=== PATIENT | female | born 1965 | race Caucasian/White ===

== ENCOUNTER 2020-03-30 10:50 | Inpatient (IN) | payer MEDICAID, SELFPAY ==
[2020-03-30] VITALS (12 sets, daily range): BP systolic 92–124; BP diastolic 54–79; PULSE 105–135; RESP 15–21; TEMP 37.1–38.7; O2SAT 92–96; BMI 18.0; BMI 18.2
--- NOTE | 2020-03-30 10:54 | HMH.EDGENADL ---
ED Disposition Clinical Impression: Hypokalemia Community acquired pneumonia Qualifiers: Laterality: right Lung location: middle lobe of lung Qualified Code(s): J18.9 - Pneumonia, unspecified organism Sepsis Qualifiers: Sepsis type: sepsis due to unspecified organism Sepsis acute organ dysfunction status: without acute organ dysfunction Qualified Code(s): A41.9 - Sepsis, unspecified organism Disposition: Admitted as Observation Condition on Discharge: Fair - Critical Care Critical Care Time: No Attestation: On , the high probability of a clinically significant, sudden or life threatening deterioration of the following system(s) required my full and direct attention, intervention and personal management. The time I documented below is in addition to time spent performing reported procedures but includes the following listed in this critical care notation. Medical Decision Making - Medical Records Medical records reviewed: Yes: I reviewed the patient's medical records. - Jim Inquiry Pt receiving controlled substance: No Vital Signs: 03/30/20 10:50 03/30/20 11:20 Temperature 101.7 F H Temperature Source Oral Pulse Rate [Left Radial] 135 H 125 H Respiratory Rate 21 Blood Pressure [Right Arm] 123/78 Blood Pressure Mean [Right Arm] 93 Blood Pressure Source [Right Arm] Automatic Cuff Blood Pressure Position [Right Arm] Sitting 02 Sat by Pulse Oximetry 94 L Oxygen Delivery Method Room Air - Lab Data Lab results reviewed: Yes: I reviewed the patient's lab results. Lab Results 03/30/20 11:10: WBC 17.3 H, RBC 3.96 L, Hgb 11.7 L, Hct 36.1 L, MCV 91.0, MCH 29.6, MCHC 32.5, RDW 12.5, Plt Count 387, MPV 6.8 L, Neut % (Auto) 85.1 H, Lymph % (Auto) 5.6 L, [place] % (Auto) 8.0, Eos % (Auto) 1.1, Baso % (Auto) 0.1, Neut # (Auto) 14.7 H, Lymph # (Auto) 1.0, [place] # (Auto) 1.4 H, Eos # (Auto) 0.2, Baso # (Auto) 0.0, Total Counted 100, Neutrophils % (Manual) 86 H, Lymphocytes % (Manual) 5 L, Monocytes % (Manual) 8, Eosinophils % (Manual) 1, Platelet Estimate Normal, RBC Morphology Normal 03/30/20 11:10: Sodium 130 L, Potassium 3.1 L, Chloride 91 L, Carbon Dioxide 30, Anion Gap 12.1, BUN 6 L, Creatinine 0.50 L, Estimated Creat Clear 98, Estimated GFR 129, Est GFR ( Amer) 156, Glucose 132 H, Calcium 8.8, Total Bilirubin 0.7, AST 23, ALT 25, Alkaline Phosphatase 152 H, Total Protein 7.9, Albumin 4.0, Globulin 3.9 H, Albumin/Globulin Ratio 1.0 L 03/30/20 11:10: Lactate 0.8 03/30/20 11:10: SARS-CoV-2 IgG Ab (Rapid) Negative, SARS-CoV-2 IgM Ab (Rapid) Negative 03/30/20 11:30: Influenza Type A Ag Negative, Influenza Type B Ag Negative Result diagrams: 03/30/20 11:10 03/30/20 11:10 Orders (Tests/Meds): ED MEDICATIONS Generic Name Dose Route Start Last Admin Trade Name Freq PRN Reason Stop Dose Admin Azithromycin 500 mg/ Sodium 250 mls @ 250 mls/hr 03/30/20 11:45 03/30/20 11:41 Chloride IV 04/13/20 11:44 250 mls/hr Q24H OWEN Administration Protocol Sodium Chloride 3 ml 03/30/20 11:06 Sodium Chloride 3% 15ml Neb IH 04/29/20 11:05 ONCE PRN INDUCE SPUTUM COLLECTION Discontinued Medications Generic Name Dose Route Start Last Admin Trade Name Freq PRN Reason Stop Dose Admin Acetaminophen 1,000 mg 03/30/20 11:05 03/30/20 11:26 Acetaminophen 500mg Tab PO 03/30/20 11:06 1,000 mg ONCE ONE Administration Ceftriaxone Sodium 1 gm/ 50 mls @ 100 mls/hr 03/30/20 11:39 03/30/20 11:41 Sodium Chloride IV 03/30/20 12:08 100 mls/hr ONCE ONE Administration Protocol Potassium Chloride 40 meq 03/30/20 11:41 03/30/20 11:42 Potassium Chloride 20meq Tab PO 03/30/20 11:42 40 meq ONCE ONE Administration Sodium Chloride 1,000 ml 03/30/20 11:05 03/30/20 11:38 Sodium Chloride 0.9% 1000ml Bag IV 03/30/20 11:06 1,000 ml BOLUS ONE Administration ORDERS Category Date Time Status Covid-19 Nasal PCR ([facility]) Routine Lab 03/30/20 11:30 Received Blo
--- NOTE | 2020-03-30 10:55 | ECG_ITS ---
APPROVED REPORT Exam: Resting ECG HR:142 bpm ECG Measurements Heart Rate 142 AXES CO 124 P 76 QRSd 72 QRS 132 QT 354 T 79 QTc 544 Conclusion Sinus tachycardia Left atrial abnormality Indeterminate axis Borderline ECG Electronically signed by : Juan Manuel Bailey, 04/04/2020 09:53:29
--- NOTE | 2020-03-30 11:06 | XR_ITS ---
PROCEDURE: XR CHEST PORTABLE CLINICAL HISTORY: cough, fever COMPARISON: No exams were available for comparison FINDINGS: The cardiomediastinal silhouette and pulmonary vascularity are within normal limits. Consolidation is present in the right lower lobe consistent with pneumonia. There is a small right effusion. There is faint infiltrate suspected in the right suprahilar region. There is a 13 mm nodular opacity projecting over the left lower lobe possibly due to nipple shadow overlying the 6th rib anteriorly. No acute bony findings. No acute bony abnormalities. IMPRESSION: Right lower lobe pneumonia with effusion. Nipple shadow versus pulmonary nodule left lower lung zone. Dictated by: Kal Terry MD 03/30/2020 12:16 Kal Terry MD in [place] 03/30/2020 12:16
[2020-03-30 11:30] LABS: Basophils % 0.1 % (0.1-2.0); Eosinophils # 0.2 K/mm3 (0.0-0.4); Eosinophils % 1.1 % (0.1-12.0); Hematocrit 36.1 % (37.0-47.0); Hemoglobin 11.7 g/dL (12.2-16.2); Lymphocytes % 5.6 % (10-50); Mean Corpuscular HGB Conc 32.5 g/dL (31.8-35.4); Mean Corpuscular Hemoglobin 29.6 pg (27.0-31.2); Mean Platelet Volume 6.8 fl (7.4-10.4); Monocytes # 1.4 K/mm3 (0.1-1.0); Neutrophils # 14.7 K/mm3 (1.8-7.8); Neutrophils % 85.1 % (37.0-80.0); Platelet Count 387 K/mm3 (142-424); Red Blood Count 3.96 M/mm3 (4.20-5.40); Red Cell Distribution Width 12.5 % (11.5-17.5); White Blood Count 17.3 K/mm3 (4.8-10.8)
[2020-03-30 11:32] LABS: Chloride 91 mmol/L (98-107); MANUAL DIFFERENTIAL MANUAL DIFFERENTIAL (MANUAL DIFF); Potassium 3.1 mmoL/L (3.5-5.1); Sodium 130 mmol/L (136-145)
[2020-03-30 11:35] LABS: Alanine Aminotransferase 25 U/L (12-78); Alkaline Phosphatase 152 U/L (38-126); Anion Gap 12.1 mEq/L (5-15); Aspartate Amino Transferase 23 U/L (14-36); Bilirubin,Total 0.7 mg/dl (0.2-1.3); Blood Urea Nitrogen 6 mg/dl (7-17); Carbon Dioxide 30 mmol/L (22.0-30.0); Creatinine Clearance Estimated 98 mL/min (50-200); Estimated Glomerular Filt Rate 129 ml/min (>60); GFR (African American) 156 ML/MIN (>60); Globulin 3.9 g/dL (1.3-3.2); Total Protein,Serum 7.9 g/dl (6.3-8.2)
[2020-03-30 11:36] LABS: Calcium 8.8 mg/dl (8.4-10.2); Glucose 132 mg/dl (74-100); Lactic Acid 0.8 mmol/L (0.7-2.1)
[2020-03-30 11:44] LABS: Eosinophils % 1 % (0-3); Lymphocytes % 5 % (10-50); Monocytes % 8 % (2-9); Neutrophils % 86 % (42-76); Platelet Estimate Normal; RBC Morphology Normal; Total Cells Counted 100
[2020-03-30 11:56] LABS: Coronavirus 19 IgG Antibody Negative (Negative)
[2020-03-30 11:57] LABS: Coronavirus 19 IgM Antibody Negative (Negative)
--- NOTE | 2020-03-30 12:01 | PC.NURSE ---
DANIELE CARLTON speaking with Dr. Sheldon contacted [facility] office to speak with Dr. Ngo as still operator helper states he is on for service call. Office staff states Dr. Ngo is out to lunch, placed me on hold to see how to proceed, stated they would place Dr. Sheldon on the phone.
--- NOTE | 2020-03-30 12:04 | PC.NURSE ---
attempted to call care management for admission, no answer, concrete finishing machine operator going to try to page them
--- NOTE | 2020-03-30 12:12 | PC.NURSE ---
CM out to lunch, HS aware if admission. Will call back with a bed
--- NOTE | 2020-03-30 12:41 | HMH.PHAVTE ---
[facility] Pharmacy VTE Monitoring - Patient Demographics Admission date: 03/30/20 Report Date: 03/30/20 Time: 12:41 Allergies/Adverse Reactions: Patient Allergies No Known Allergies Allergy (Verified 04/13/19 16:45) Height: 1.63 m Weight: 47.627 kg Patient Problems: Current Active Problems Community acquired pneumonia (Acute) Sepsis (Acute) Hypokalemia (Acute) - VTE Risk Labs: VTE Related Lab Results Hgb 11.7 g/dL (12.2-16.2) L 03/30/20 11:10 Hct 36.1 % (37.0-47.0) L 03/30/20 11:10 Plt Count 387 K/mm3 (142-424) 03/30/20 11:10 BUN 6 mg/dl (7-17) L 03/30/20 11:10 Creatinine 0.50 mg/dl (0.52-1.04) L 03/30/20 11:10 Estimated Creat Clear 98 mL/min (50-200) 03/30/20 11:10 Clinical Trial Participant: No - Prophylaxis VTE Prophylaxis Ordered?: Yes Types of VTE Prophylaxis: TEDS Knee High
--- NOTE | 2020-03-30 12:44 | HMH.PHAINT ---
HOME MEDICATION RECONCILIATION COMPLETED USING LIST FROM [facility].
--- NOTE | 2020-03-30 13:24 | HMH.HP ---
*Admission Date: 03/30/20 <Mona Diehl 03/30/20 13:30> *Chief complaint: body aches; fever <Mona Diehl 03/30/20 18:06> *History of present illness: HPI narrative from the ER: Brought in by ambulance complaining of cough, generalized weakness, body aches. Symptoms began on Sunday. She has felt feverish but thinks she is only had a low-grade fever. No known exposures to any illnesses including COVID-19. Denies vomiting or diarrhea. Denies loss of taste or smell. Denies rhinorrhea or sore throat. Denies shortness of breath, but says her chest feels congested. Reported pulse oximetry on room air prior to transport was 98%. Patient reported taking a couple of Sudafed, noted to be tachycardic during transport. She has a history of breast cancer metastatic to lung. Her cancer specialist is Dr. Stovall with [facility] in [place]. She is on tamoxifen. She does not have a primary care provider. She states she is a non-smoker. No recent hospitalizations in the past 3 months. With work-up in the emergency room patient was found to have a right lower lobe pneumonia with effusion. White blood cell count was 17,300 with a hemoglobin of 11.7 and hematocrit of 36.1. Differential showed 85.1% neutrophils. She also was noted to have a low potassium at 3.1. Renal function was not elevated. COVID IgG and IgM were negative. Influenza A and B were also negative. She was given IV fluid bolus and started on Zithromax and Rocephin as well as p.o. potassium 40 mEq. She was then admitted for further evaluation and treatment <Mona Diehl 03/30/20 18:06> [facility] History Medical History: Reports:: Cancer (breast/lung) Denies:: Seizures <Mona Diehl 03/30/20 18:52> *Have you ever received a pneumonia vaccine?: No <Mona Diehl 03/30/20 13:30> *Have you received a flu vaccine this season?: No <Mona Diehl 03/30/20 13:30> Comment:: States she tends to be anorexic due to running after her autistic son. She takes metoprolol for SVT <Mona Diehl 03/30/20 18:52> Laterality Cases: Left: Breast Biopsy, Right: Lumpectomy <ShanitaMona 03/30/20 18:52> - *Social History Last grade of school completed: Some college <Mona Diehl 03/30/20 18:06> Alcohol Intake: never <Mona Diehl 03/30/20 13:30> Substance Use Type: denies use <Mona Diehl 03/30/20 18:06> *Occupational Status:: unemployed, disabled <Mona Diehl 03/30/20 18:06> Housing: house <Mona Diehl 03/30/20 18:06> Household Members: family <Mona Diehl 03/30/20 18:06> *Travel in the last 8 weeks: None <Mona Diehl 03/30/20 13:30> Family Hx:: Cancer, no Coronary Artery Disease, no Diabetes <Mona Diehl 03/30/20 18:06> Review of Systems - Constitutional Reports chills, Reports headache(s), Reports weakness <Mona Diehl 03/30/20 18:06> - Eyes Denies change in vision <Mona Diehl 03/30/20 18:06> - ENT Denies ear pain, Denies nasal congestion, Denies post nasal drip, Denies sore throat <Mona Diehl 03/30/20 18:06> - *Cardiovascular Reports chest pain (thinks it is her lungs) <Mona Diehl 03/30/20 18:06> - *Respiratory Reports change in phlegm color, Reports chest congestion, Reports cough, Reports shortness of breath, Denies coughing up blood <Mona Diehl 03/30/20 18:06> - *Gastrointestinal Denies abdominal pain, Denies heartburn, Denies nausea, Denies vomiting <Mona Diehl 03/30/20 18:06> - *Genitourinary Denies difficulty urinating, Denies painful urination <Mona Diehl 03/30/20 18:06> - *Musculoskeletal Denies joint pain <Mona Diehl 03/30/20 18:06> - *Neurologic Reports headache(s), Denies seizure-like activity <Mona Diehl - 03/30/20 18:06> Meds Home Medications Medication Instructions Recorded Confirmed Type Albuterol Sulfate [Albuterol 2 puff IH Q6HP PRN 04/13/19 03/30/20 History Sulfate Hfa] Metoprolol Succinate 25 mg PO DAILY 04/13
--- NOTE | 2020-03-30 13:25 | PC.NURSE ---
Attempted to call report, RN unable to take report at this time. Will call back
--- NOTE | 2020-03-30 13:37 | PC.NURSE ---
Report given to Zo on 2nd floor
--- NOTE | 2020-03-30 14:24 | PC.NURSE ---
Late entry: PT arrived to the floor at 1407
--- NOTE | 2020-03-30 17:47 | PC.NURSE ---
Addendum entered by Lilia Larson RN 03/30/20 20:36: 1830 - Dr. Sheldon to floor to see pt at this time. Made aware of pt's tachycardia as well. to place orders. Original Note: Stacey iDehl at bedside when VS obtained, aware of pt's tachycardia.
--- NOTE | 2020-03-30 18:30 | PC.NURSE ---
Report received from Jo BarajasRN @ 0096. Pt has rested comfortably w/o complaints since assuming care. Remains on room air. Is afebrile. Ambulates independently w/o safety concerns. Voiding w/o difficulty. Has poor appetite. Call nelson w/in reach. No needs voiced.
--- NOTE | 2020-03-30 18:50 | PC.NURSE ---
Held pt's breathing treatment due to high heart rate. Pt stated she did not need one right now
[2020-03-31] VITALS (12 sets, daily range): BP systolic 100–116; BP diastolic 56–71; PULSE 90–125; RESP 14–20; TEMP 36.4–37; O2SAT 95–98; BMI 18.0
--- NOTE | 2020-03-31 06:56 | PC.NURSE ---
shift summary, no acute changes since prior assessment, pt has rested well t/o shift, pt has had no complaints of SOA, pt O2 sats have remained 96-98% on room air,
[2020-03-31 07:02] LABS: Basophils % 0.2 % (0.1-2.0); Eosinophils # 0.1 K/mm3 (0.0-0.4); Eosinophils % 0.7 % (0.1-12.0); Hematocrit 30.1 % (37.0-47.0); Lymphocytes # 1.1 K/mm3 (0.7-4.5); Lymphocytes % 8.1 % (10-50); Mean Corpuscular HGB Conc 31.1 g/dL (31.8-35.4); Mean Corpuscular Hemoglobin 29.6 pg (27.0-31.2); Mean Corpuscular Volume 95.3 fl (81-99); Mean Platelet Volume 7.2 fl (7.4-10.4); Monocytes # 1.3 K/mm3 (0.1-1.0); Monocytes % 9.8 % (1.7-9.3); Neutrophils # 11.2 K/mm3 (1.8-7.8); Neutrophils % 81.3 % (37.0-80.0); Platelet Count 356 K/mm3 (142-424); Red Blood Count 3.16 M/mm3 (4.20-5.40); Red Cell Distribution Width 12.6 % (11.5-17.5); White Blood Count 13.8 K/mm3 (4.8-10.8)
[2020-03-31 07:09] LABS: Hemoglobin 9.4 g/dL (12.2-16.2)
[2020-03-31 07:23] LABS: Chloride 102 mmol/L (98-107); Potassium 3.5 mmoL/L (3.5-5.1); Sodium 138 mmol/L (136-145)
[2020-03-31 07:26] LABS: Anion Gap 7.5 mEq/L (5-15); Blood Urea Nitrogen 6 mg/dl (7-17); Calcium 8.3 mg/dl (8.4-10.2); Carbon Dioxide 32 mmol/L (22.0-30.0); Creatinine Clearance Estimated 98 mL/min (50-200); Estimated Glomerular Filt Rate 129 ml/min (>60); GFR (African American) 156 ML/MIN (>60); Glucose 108 mg/dl (74-100)
--- NOTE | 2020-03-31 10:27 | HMH.ACPN2 ---
Internal Medicine - PN: Subj *Date: 03/31/20 *Time: 10:27 Interval history: Rested fairly well and feels a little better this AM. Cough is starting to become productive. Some right pleuritic pain. Has not produced sputum sample yet. Exam Vital signs and Labs for Last 24 Hours: Temp Pulse Resp BP Pulse Ox 97.6 F 125 H 18 104/69 L 95 03/31/20 08:00 03/31/20 08:00 03/31/20 08:00 03/31/20 08:00 03/31/20 08:00 Laboratory Results - last 24 hr 03/30/20 11:10: WBC 17.3 H, RBC 3.96 L, Hgb 11.7 L, Hct 36.1 L, MCV 91.0, MCH 29.6, MCHC 32.5, RDW 12.5, Plt Count 387, MPV 6.8 L, Neut % (Auto) 85.1 H, Lymph % (Auto) 5.6 L, [place] % (Auto) 8.0, Eos % (Auto) 1.1, Baso % (Auto) 0.1, Neut # (Auto) 14.7 H, Lymph # (Auto) 1.0, [place] # (Auto) 1.4 H, Eos # (Auto) 0.2, Baso # (Auto) 0.0, Total Counted 100, Neutrophils % (Manual) 86 H, Lymphocytes % (Manual) 5 L, Monocytes % (Manual) 8, Eosinophils % (Manual) 1, Platelet Estimate Normal, RBC Morphology Normal 03/30/20 11:10: Sodium 130 L, Potassium 3.1 L, Chloride 91 L, Carbon Dioxide 30, Anion Gap 12.1, BUN 6 L, Creatinine 0.50 L, Estimated Creat Clear 98, Estimated GFR 129, Est GFR ( Amer) 156, Glucose 132 H, Calcium 8.8, Total Bilirubin 0.7, AST 23, ALT 25, Alkaline Phosphatase 152 H, Total Protein 7.9, Albumin 4.0, Globulin 3.9 H, Albumin/Globulin Ratio 1.0 L 03/30/20 11:10: Lactate 0.8 03/30/20 11:10: SARS-CoV-2 IgG Ab (Rapid) Negative, SARS-CoV-2 IgM Ab (Rapid) Negative 03/30/20 11:30: Influenza Type A Ag Negative, Influenza Type B Ag Negative 03/31/20 05:36: Sodium 138, Potassium 3.5, Chloride 102, Carbon Dioxide 32 H, Anion Gap 7.5, BUN 6 L, Creatinine 0.50 L, Estimated Creat Clear 98, Estimated GFR 129, Est GFR ( Amer) 156, Glucose 108 H, Calcium 8.3 L 03/31/20 05:36: WBC 13.8 H, RBC 3.16 L, Hgb 9.4 L D, Hct 30.1 L, MCV 95.3, MCH 29.6, MCHC 31.1 L, RDW 12.6, Plt Count 356, MPV 7.2 L, Neut % (Auto) 81.3 H, Lymph % (Auto) 8.1 L, [place] % (Auto) 9.8 H, Eos % (Auto) 0.7, Baso % (Auto) 0.2, Neut # (Auto) 11.2 H, Lymph # (Auto) 1.1, [place] # (Auto) 1.3 H, Eos # (Auto) 0.1, Baso # (Auto) 0.0 I & O for Last 24 hours: Intake & Output 03/28/20 03/29/20 03/30/20 03/31/20 11:59 11:59 11:59 11:59 Intake Total 2624 / 2624 Balance 2624 / 2624 Weight 105 lb 105 lb 7.986 oz Microbiology Reports for the Last 24 Hours: Microbiology 03/30/20 13:15 Sputum - Expectorated Sputum Sputum Culture - Preliminary 03/30/20 11:30 Nasopharyngeal Coronavirus COVID-19 PCR - Final - *Routine Respiratory Exam Comments: Diminished BS with coarse rales in right base. - *Routine Cardiovascular Exam Present: RRR - *Routine Extremities Exam Absent: edema Assessment and Plan (1) Community acquired pneumonia Status: Acute Qualifiers: Laterality: right Lung location: middle lobe of lung Qualified Code(s): J18.9 - Pneumonia, unspecified organism Category: Medical Code(s): J18.9 - Pneumonia, unspecified organism (2) Hypokalemia Status: Acute Category: Medical Code(s): E87.6 - Hypokalemia (3) SVT (supraventricular tachycardia) Status: Acute Category: Medical Code(s): I47.1 - Supraventricular tachycardia (4) History of breast cancer in adulthood Status: Chronic Category: Medical Code(s): Z85.3 - Personal history of malignant neoplasm of breast (5) BMI less than 19,adult Status: Chronic Category: Medical Code(s): Z68.1 - Body mass index [BMI] 19.9 or less, adult - Assessment and plan all Dx Assessment and Plan for all problems:: Continue current treatment. Encourage OOB activity
--- NOTE | 2020-03-31 19:19 | PC.NURSE ---
report given to amanda
--- NOTE | 2020-03-31 19:33 | PC.NURSE ---
PT AO*4 BUT HAS HAD LOW ENERGY FOR MOST OF DAY, SHE HAS TOLERATED RA WELL WITH NO COMPLAINTS, HAS SLEPT FOR MOST OF THE DAY, HER ONLY COMPLAINT WAS FOR A HEADACHE MEDICATED WITH PRN TYLENOL, EFFECTIVENESS NOTED, HAS AMBULATED TO WITH STANDBY ASSIST, N ONEEDS AT THIS TIME VSS. REPORT GIVEN TO Emmy HILL RN
[2020-04-01] VITALS (10 sets, daily range): BP systolic 108–122; BP diastolic 66–71; PULSE 99–130; RESP 14–20; TEMP 36.6–37.8; O2SAT 95–100; BMI 19.3
--- NOTE | 2020-04-01 04:17 | PC.NURSE ---
Pt is A&Ox4. Lung sounds diminished t/o. Pt has had a dry, nonproductive cough this shift. Pt states her cough got worse after breathing treatment Pt requested a cough suppressant. MD Ngo called. New orders received. SEE PROVIDER NOTIFICATION. Active bowel sounds in all 4 quads. Pt requires standby assistance to the restroom. PIV remains patent and continues to infuse NS @ 100 mL/hr. No other complaints at this time. Call light remains in reach. Will continue to monitor.
[2020-04-01 06:30] LABS: Basophils % 0.2 % (0.1-2.0); Eosinophils # 0.1 K/mm3 (0.0-0.4); Hematocrit 29.1 % (37.0-47.0); Hemoglobin 9.1 g/dL (12.2-16.2); Lymphocytes % 7.8 % (10-50); Mean Corpuscular HGB Conc 31.4 g/dL (31.8-35.4); Mean Corpuscular Hemoglobin 29.6 pg (27.0-31.2); Mean Corpuscular Volume 94.1 fl (81-99); Mean Platelet Volume 7.1 fl (7.4-10.4); Monocytes # 0.9 K/mm3 (0.1-1.0); Monocytes % 7.4 % (1.7-9.3); Neutrophils # 10.3 K/mm3 (1.8-7.8); Neutrophils % 83.6 % (37.0-80.0); Platelet Count 411 K/mm3 (142-424); Red Blood Count 3.09 M/mm3 (4.20-5.40); Red Cell Distribution Width 12.7 % (11.5-17.5); White Blood Count 12.4 K/mm3 (4.8-10.8)
--- NOTE | 2020-04-01 08:33 | XR_ITS ---
PROCEDURE: XR CHEST PORTABLE CLINICAL HISTORY: f/u pneumonia COMPARISON: CR XR CHEST PORTABLE from 03/30/2020 FINDINGS: The cardiomediastinal silhouette and pulmonary vascularity are within normal limits. There is consolidation in the right lower lobe consistent with pneumonia with effusion. The pleural thickening is slightly more prominent laterally. Small left effusion also suspected. 12 mm opacity once again noted overlying the left lower lung zone and may be due to nipple shadow. No acute bony abnormalities. IMPRESSION: No change right lower lobe pneumonia with right-sided pleural effusion which may be slightly larger. Trace left effusion also noted. Dictated by: Kal Terry MD 04/01/2020 13:18 Kal Terry MD in [place] 04/01/2020 13:18
--- NOTE | 2020-04-01 08:56 | HMH.ACPN2 ---
<Komal Macdonald - Last Filed: 04/01/20 08:56> Internal Medicine - PN: Subj *Date: 04/01/20 *Time: 07:50 Interval history: Pt reports being weak and not feeling well this morning. She states she is hungry but has not yet attempted to eat breakfast. She has a productive cough which kept her from resting well overnight. Exam Vital signs and Labs for Last 24 Hours: Temp Pulse Resp BP Pulse Ox 98.4 F 127 H 18 118/69 97 04/01/20 04:00 04/01/20 06:25 04/01/20 04:00 04/01/20 04:00 04/01/20 06:25 Laboratory Results - last 24 hr 04/01/20 06:15: WBC 12.4 H, RBC 3.09 L, Hgb 9.1 L, Hct 29.1 L, MCV 94.1, MCH 29.6, MCHC 31.4 L, RDW 12.7, Plt Count 411, MPV 7.1 L, Neut % (Auto) 83.6 H, Lymph % (Auto) 7.8 L, [place] % (Auto) 7.4, Eos % (Auto) 1.0, Baso % (Auto) 0.2, Neut # (Auto) 10.3 H, Lymph # (Auto) 1.0, [place] # (Auto) 0.9, Eos # (Auto) 0.1, Baso # (Auto) 0.0 I & O for Last 24 hours: Intake & Output 03/29/20 03/30/20 03/31/20 04/01/20 11:59 11:59 11:59 11:59 Intake Total 2624 / 2624 2365 / 2365 Output Total 500 / 500 Balance 2624 / 2624 1865 / 1865 Weight 105 lb 105 lb 7.986 oz 113 lb Microbiology Reports for the Last 24 Hours: Microbiology 03/30/20 13:15 Sputum - Expectorated Sputum Sputum Culture - Preliminary Gram Positive Cocci - Constitutional Comments: NAD although she is thin and frail, appears ill - *Routine HEENT Exam Head: Present: normocephalic ENT: Present: mucous membranes moist - *Routine Respiratory Exam Comments: good air movement with crackles on the right - *Routine Cardiovascular Exam Present: RRR - *Routine Abdominal Exam Present: soft, normoactive bowel sounds. Absent: tenderness, distended, guarding, firm, rigid - *Routine Extremities Exam Present: full ROM, pulses intact. Absent: edema, calf tenderness - *Routine Neurological Exam Present: alert, oriented X3, normal speech Assessment and Plan (1) Community acquired pneumonia Status: Acute Qualifiers: Laterality: right Lung location: middle lobe of lung Qualified Code(s): J18.9 - Pneumonia, unspecified organism Category: Medical Code(s): J18.9 - Pneumonia, unspecified organism (2) Hypokalemia Status: Acute Category: Medical Code(s): E87.6 - Hypokalemia (3) SVT (supraventricular tachycardia) Status: Acute Category: Medical Code(s): I47.1 - Supraventricular tachycardia (4) History of breast cancer in adulthood Status: Chronic Category: Medical Code(s): Z85.3 - Personal history of malignant neoplasm of breast (5) BMI less than 19,adult Status: Chronic Category: Medical Code(s): Z68.1 - Body mass index [BMI] 19.9 or less, adult - Assessment and plan all Dx Assessment and Plan for all problems:: CXR today. Effie stopped. Further per Dr. Sheldon. <Darian Sheldon - Last Filed: 04/01/20 13:53> Internal Medicine - PN: Subj *Date: 04/01/20 *Time: 13:48 Exam Vital signs and Labs for Last 24 Hours: Temp Pulse Resp BP Pulse Ox 97.9 F 115 H 18 117/66 96 04/01/20 12:00 04/01/20 12:00 04/01/20 12:00 04/01/20 12:00 04/01/20 12:00 Laboratory Results - last 24 hr 04/01/20 06:15: WBC 12.4 H, RBC 3.09 L, Hgb 9.1 L, Hct 29.1 L, MCV 94.1, MCH 29.6, MCHC 31.4 L, RDW 12.7, Plt Count 411, MPV 7.1 L, Neut % (Auto) 83.6 H, Lymph % (Auto) 7.8 L, [place] % (Auto) 7.4, Eos % (Auto) 1.0, Baso % (Auto) 0.2, Neut # (Auto) 10.3 H, Lymph # (Auto) 1.0, [place] # (Auto) 0.9, Eos # (Auto) 0.1, Baso # (Auto) 0.0 I & O for Last 24 hours: Intake & Output 03/30/20 03/31/20 04/01/20 04/02/20 11:59 11:59 11:59 11:59 Intake Total 2624 / 2624 2485 / 2485 Output Total 500 / 500 Balance 2624 / 2624 1984 Weight 105 lb 105 lb 7.986 oz 113 lb Microbiology Reports for the Last 24 Hours: Microbiology 03/30/20 11:10 Blood Blood Culture - Preliminary NO GROWTH AFT
--- NOTE | 2020-04-01 16:55 | PC.NURSE ---
PT HAS BEEN AO*4. PT ON RA, NO C/O SOA BUT LUNGS ARE DIMINSHED ON AUSCULTATION, HAS AMBULATED TO BSC PER SELF, NO COUGH NOTED T/O SHIFT, PT HAS NOT C/O PAIN THIS SHIFT, HAS RESTED COMFORTABLY T/O SHIFT NO COMPLAINTS, NO NEEDS AT THIS TIME, WILL CONTINUE TO MONITOR,
[2020-04-02] VITALS (8 sets, daily range): BP systolic 103–120; BP diastolic 69–78; PULSE 68–130; RESP 16–18; TEMP 36.8–37.6; O2SAT 93–98; BMI 18.8
[2020-04-02 06:26] LABS: Basophils % 0.3 % (0.1-2.0); Eosinophils # 0.2 K/mm3 (0.0-0.4); Eosinophils % 2.2 % (0.1-12.0); Hematocrit 31.3 % (37.0-47.0); Hemoglobin 9.7 g/dL (12.2-16.2); Lymphocytes # 1.5 K/mm3 (0.7-4.5); Lymphocytes % 15.2 % (10-50); Mean Corpuscular HGB Conc 31.1 g/dL (31.8-35.4); Mean Corpuscular Hemoglobin 29.2 pg (27.0-31.2); Mean Corpuscular Volume 93.7 fl (81-99); Mean Platelet Volume 6.9 fl (7.4-10.4); Monocytes # 0.6 K/mm3 (0.1-1.0); Monocytes % 6.3 % (1.7-9.3); Neutrophils # 7.3 K/mm3 (1.8-7.8); Neutrophils % 76.1 % (37.0-80.0); Platelet Count 582 K/mm3 (142-424); Red Blood Count 3.34 M/mm3 (4.20-5.40); Red Cell Distribution Width 13.1 % (11.5-17.5); White Blood Count 9.6 K/mm3 (4.8-10.8)
--- NOTE | 2020-04-02 06:38 | PC.NURSE ---
Pt is alert and oriented x4. Answers all questions appropriately when asked but states bizarre facts about staff with episodes of bizarre behaviors t/o shift. Pt noted very upset that her Duonebs were d/c yesterday per Monalisa CARLTON. States she wants them back . Pt stood on top of her bed half dressed and threw her arms in the air and started yelling at this RN when told her Duonebs were d/c on AUG. Pt then proceeded to climb over foot railing on bed jumping onto floor in room. This RN attempted to calm her down, stating she would call the MD to see if we could get another order for breathing tx and to please sit down on the bed for her safety. Pt states everyone here is just trying to kill me . Pt states multiple times this shift that her [id number] is a multimillionaire and to a disability coordinator with connections at [facility] and is out to kill her . This RN reassured pt that her [id number] could not be provided any info due to pt not having a password set up, pt in disbelief. Pt also requesting this am for her PCP to be changed from Monalisa to Jeni. Pt states, I have a feeling he (Monalisa) is listening in on my phone conversations with my sister and I don't appreciate that. I also don't feel its right for my doctor to city engineer my room and stare at me with nothing to say just trying to be nosey with my phone calls. This made me feel very uncomfortable . PERRLA. Bilateral hand rehabilitation clerk noted equal and strong. Cap refill < 3 seconds. Bilateral lungs noted clear t/o upon auscultation. Diminished lung sounds noted to right lower lobe. Encouraged use of incentive spirometer while awake this shift. Pt demonstrated appropriate use. Tolerated RA well with no c/o SOA. RR noted even and unlabored. Abdomen noted soft, flat, and non-tender upon palpation. Bowel sounds noted active in all 4 quads. Pt states to this RN that previous shift refused to bring her a dinner tray. States they never brought my food and just expected me to starve . This RN offered pt several snack options at . Pt refused all options, but did eat a leftover muffin from her previous lunch tray. Pt states she prefers all drinks and foods at room temp. No BM noted this shift. Adequate urine output noted per BSC. Amb independently to BSC, tolerates well. Urine noted clear and bright yellow in color. Refused teds. No edema noted. Sinus tach and sinus Arrhythmia with PAC's noted on cardiac sonographer this shift. VSS, HR noted tach ranging 100-130's. Pt asymptomatic. Remains safe. Call light within reach. Will continue to monitor.
--- NOTE | 2020-04-02 08:52 | PC.NURSE ---
I was approached by Dr. Sheldon during am rounds. Patient had informed MD that she no longer wished to have him as her physician while in the hospital. Dr Sheldon is hardwood floor installation helper this weekend, so no one else would be available to see her this weekend except him. Patient stated she did not care who was her physician as long as it was not Dr. Sheldon. Dr. Sheldon was not allowed to be in the room per the patient. Spoke with Bryn COLON who agreed to see the patient and will speak with Dr Brown. Bryn rounded on patient at approx [phone]. Eleazar Meneses RN aware
--- NOTE | 2020-04-02 09:00 | HMH.ACPN2 ---
<Komal Macdonald - Last Filed: 04/02/20 09:00> Internal Medicine - PN: Subj *Date: 04/02/20 *Time: 07:45 Interval history: Patient is sitting up in bed drinking tea this morning. She is happy and smiling broadly and reports feeling so much better than I did yesterday. She denies any pain currently. She denies any cough or SOB. She requested that her window shades be opened so that she could enjoy the view while she eats breakfast. Exam Vital signs and Labs for Last 24 Hours: Temp Pulse Resp BP Pulse Ox 98.5 F 101 H 16 103/73 L 97 04/02/20 04:00 04/02/20 06:40 04/02/20 04:00 04/02/20 04:00 04/02/20 06:40 Laboratory Results - last 24 hr 04/02/20 05:48: WBC 9.6, RBC 3.34 L, Hgb 9.7 L, Hct 31.3 L, MCV 93.7, MCH 29.2, MCHC 31.1 L, RDW 13.1, Plt Count 582 H D, MPV 6.9 L, Neut % (Auto) 76.1, Lymph % (Auto) 15.2, [place] % (Auto) 6.3, Eos % (Auto) 2.2, Baso % (Auto) 0.3, Neut # (Auto) 7.3, Lymph # (Auto) 1.5, [place] # (Auto) 0.6, Eos # (Auto) 0.2, Baso # (Auto) 0.0 I & O for Last 24 hours: Intake & Output 03/30/20 03/31/20 04/01/20 04/02/20 11:59 11:59 11:59 11:59 Intake Total 2624 / 2624 2485 / 2485 2682 / 2682 Output Total 500 / 500 2600 / 2600 Balance 2624 / 2624 1984 82 / 82 Weight 105 lb 105 lb 7.986 oz 113 lb 110 lb 4 oz Microbiology Reports for the Last 24 Hours: Microbiology 03/30/20 13:15 Sputum - Expectorated Sputum Sputum Culture - Final Streptococcus pneumoniae 03/30/20 11:10 Blood Blood Culture - Preliminary NO GROWTH AFTER 48 HOURS 03/30/20 11:10 Blood Blood Culture - Preliminary NO GROWTH AFTER 48 HOURS - Constitutional no acute distress - *Routine HEENT Exam Head: Present: normocephalic ENT: Present: mucous membranes moist - *Routine Respiratory Exam Absent: respiratory distress, wheezes Comments: good air movement with right basilar rales, improved from yesterday - *Routine Cardiovascular Exam Present: RRR - *Routine Abdominal Exam Present: soft, normoactive bowel sounds. Absent: tenderness, distended, guarding, firm, rigid - *Routine Extremities Exam Present: full ROM, pulses intact. Absent: edema, calf tenderness - *Routine Neurological Exam Present: alert, oriented X3, normal speech Assessment and Plan (1) Community acquired pneumonia Status: Acute Qualifiers: Laterality: right Lung location: middle lobe of lung Qualified Code(s): J18.9 - Pneumonia, unspecified organism Category: Medical Code(s): J18.9 - Pneumonia, unspecified organism (2) Hypokalemia Status: Acute Category: Medical Code(s): E87.6 - Hypokalemia (3) SVT (supraventricular tachycardia) Status: Acute Category: Medical Code(s): I47.1 - Supraventricular tachycardia (4) History of breast cancer in adulthood Status: Chronic Category: Medical Code(s): Z85.3 - Personal history of malignant neoplasm of breast (5) BMI less than 19,adult Status: Chronic Category: Medical Code(s): Z68.1 - Body mass index [BMI] 19.9 or less, adult - Assessment and plan all Dx Assessment and Plan for all problems:: Further per Dr. Sheldon. <Darian Sheldon - Last Filed: 04/02/20 18:55> Internal Medicine - PN: Subj *Date: 04/02/20 *Time: 18:47 Exam Vital signs and Labs for Last 24 Hours: Temp Pulse Resp BP Pulse Ox 99.7 F H 118 H 18 117/70 93 L 04/02/20 16:00 04/02/20 16:00 04/02/20 16:00 04/02/20 16:00 04/02/20 16:00 Laboratory Results - last 24 hr 04/02/20 05:48: WBC 9.6, RBC 3.34 L, Hgb 9.7 L, Hct 31.3 L, MCV 93.7, MCH 29.2, MCHC 31.1 L, RDW 13.1, Plt Count 582 H D, MPV 6.9 L, Neut % (Auto) 76.1, Lymph % (Auto) 15.2, [place] % (Auto) 6.3, Eos % (Auto) 2.2, Baso % (Auto) 0.3, Neut # (Auto) 7.3, Lymph # (Auto) 1.5, Lamb # (Auto) 0.6, Eos # (Auto) 0.2, Baso # (Auto) 0.0 I & O for Last 24 hours: Intake & Output 03/31/20
--- NOTE | 2020-04-02 09:51 | CT_ITS ---
PROCEDURE: CT CHEST WO CON CLINICAL INDICATION: PNA Pneumonia, sepsis, history of breast cancer COMPARISON: CR XR CHEST PORTABLE from 04/01/2020 TECHNIQUE: Axial images obtained with sagittal and coronal reformats. All CT scans at the facility use one or more dose reduction, viz: automated exposure control, ma/kV adjustment per patient size (including targeted exams where dose is matched to indication, i.e. head), or iterative reconstruction technique. FINDINGS: Normal heart size. Small amount fluid is present in the superior recess of the pericardium with mild thickening. Hilar node calcification is present on the right. No obvious mediastinal or hilar mass. There is COPD changes. There is minor thickening of the right major fissure. There is dense consolidation in the right lower lobe consistent with pneumonia. There is an irregular area of increased density in the infrahilar region which measures 2.8 x 2.3 x 1.6 cm. This is in the region of the anterior basilar segmental bronchus of the right lower lobe bronchus. There is peripheral subpleural opacification in the right lower lobe measuring 2.4 by 1 cm. Atelectatic or fibrotic changes are present in the right middle lobe. There is trace right-sided effusion. Patchy infiltrate is present in the left lower lobe posteriorly and left upper lobe medially. There is a small amount loculated effusion in the right lung base and right lateral hemithorax. IMPRESSION: 1. Dense consolidation in the right lower lobe consistent with pneumonia. 2. 2.8 x 2.3 cm irregular opacity in the right infrahilar region. Neoplasm is considered. This could represent an area of dense consolidation as well. Follow-up is suggested. There is also peripheral opacification in the right lower lobe laterally which may be due to an area of scarring. Loculated right pleural effusion. 3. Patchy ground-glass density in the left lower lobe and left upper lobe suggesting an area of infiltrate Dictated by: Kal Terry MD 04/02/2020 13:44 Kal Terry MD in [place] 04/02/2020 13:44
--- NOTE | 2020-04-02 11:48 | HMH.PULMCON ---
*Admission Date: 03/30/20 *Reason for consult:: Community-acquired pneumonia *History of present illness: Ms. Grant is a 55-year-old female non-smoker was presented to the hospital worsening respiratory lung with fever chills and productive cough,. She was started on community-acquired pneumonia treatment, significantly improving since admission with improving leukocytosis being afebrile. However patient had an episode of hypoxia and and pulmonary was called for further management. However after talking to the patient patient stated her breathing did not worsen overnight but however she felt uncomfortable as the floor staff woke her up from sleep tried to give her nebulization treatment when she is lying down. Today states that her breathing significant improved since admission, denies any worsening cough, worsening shortness of breath, worsening productive phlegm. [facility] History Medical History: Reports:: Cancer (breast/lung), Hypertension Denies:: Seizures *Have you ever received a pneumonia vaccine?: No *Have you received a flu vaccine this season?: No Laterality Cases: Left: Breast Biopsy, Right: Lumpectomy - *Social History Last grade of school completed: Some college Alcohol Intake: current Alcohol Intake Frequency:: holidays/special occasions only Substance Use Type: denies use *Occupational Status:: unemployed, disabled Housing: house Household Members: family *Travel in the last 8 weeks: None Family Hx:: Cancer, no Coronary Artery Disease, no Diabetes [facility] Pulmonology ROS - Review of Systems Review of systems:: pertinent systems reviewed and negative unless documented below - *Cardiovascular Reports shortness of breath - *Respiratory Respiratory: Yes shortness of breath, Yes chest congestion, Yes cough, Yes excessive phlegm production - *Gastrointestinal Gastrointestingal: Reports: system reviewed and no additional complaints, except as docu - *Musculoskeletal Musculoskeletal: Reports system reviewed and no additional complaints, except as docu - *Neurologic Reports headache(s), Reports weakness, Denies seizure-like activity Meds Home Medications Medication Instructions Recorded Confirmed Type Albuterol Sulfate [Albuterol 2 puff IH Q6HP PRN 04/13/19 03/30/20 History Sulfate Hfa] Metoprolol Succinate 25 mg PO DAILY 04/13/19 03/30/20 History Tamoxifen Citrate 20 mg PO DAILY 04/13/19 03/30/20 History diazePAM [diazePAM 5mg Tablet] 5 mg PO TID PRN 04/13/19 03/30/20 History Citalopram Hydrobromide 20 mg PO DAILY 03/30/20 03/30/20 History [Citalopram 20mg Tablet] Allergies Allergy/AdvReac Type Severity Reaction Status Date / Time No Known Allergies Allergy Verified 04/13/19 16:45 Exam Vital signs and Labs for Last 24 Hours: Temp Pulse Resp BP Pulse Ox 98.3 F 68 18 113/69 96 04/02/20 08:00 04/02/20 08:00 04/02/20 08:00 04/02/20 08:00 04/02/20 08:00 Laboratory Results - last 24 hr 04/02/20 05:48: WBC 9.6, RBC 3.34 L, Hgb 9.7 L, Hct 31.3 L, MCV 93.7, MCH 29.2, MCHC 31.1 L, RDW 13.1, Plt Count 582 H D, MPV 6.9 L, Neut % (Auto) 76.1, Lymph % (Auto) 15.2, [place] % (Auto) 6.3, Eos % (Auto) 2.2, Baso % (Auto) 0.3, Neut # (Auto) 7.3, Lymph # (Auto) 1.5, [place] # (Auto) 0.6, Eos # (Auto) 0.2, Baso # (Auto) 0.0 I & O for Last 24 hours: Intake & Output 03/30/20 03/31/20 04/01/20 04/02/20 23:59 23:59 23:59 23:59 Intake Total 1142 / 1262 2570 / 2570 2624 / 2744 1875 / 1875 Output Total 1800 / 2100 1300 / 1300 Balance 1142 / 1262 2570 / 2070 824 / 644 575 / 575 Weight 106 lb 3 oz 105 lb 7.986 oz 113 lb 110 lb 4 oz Microbiology Reports for the Last 24 Hours: Microbiology 03/30/20 13:15 Sputum - Expectorated Sputum Sputum Culture - Final Streptococcus pneumoniae 03/30/20 11:10 Blood Blood Culture - Preliminary NO GROWTH AFTER 48 HOURS 03/30/20 11:10 Blood Blood Culture - Preliminary
--- NOTE | 2020-04-02 13:20 | PC.NURSE ---
PT BACK TO ROOM FROM CT SCAN VIA W/C AND RADIOLOGY STAFF.
--- NOTE | 2020-04-02 15:15 | PC.NURSE ---
Behavioral Health Nurse at to see pt r/t consultation order.
--- NOTE | 2020-04-02 15:59 | HMH.ACPN2 ---
Internal Medicine - PN: Subj *Date: 04/02/20 *Time: 09:45 Interval history: 55-year old female patient sitting up in bed resting quietly respirations easy and even. No respiratory distress, she does report she is feeling so much better today than yesterday. Explained to patient we wanted her to see pulmonary physician and have a chest CT and she was receptive to this and agrees. This morning case management informed [facility] primary care team patient was requesting a new physician after refusing to see her physician she had previously seen 2 days consecutively. Patient had discussed with fitness floor attendant that she requested a new physician because old physician had canceled her breathing treatments. Previous physician had canceled her breathing treatments due to patient complaining over being awakened during the night for treatments, she was sleeping and in no respiratory distress so the treatments were canceled. Patient was acting bizarrely yesterday, today is alert and oriented x 3 and very talkative Exam Vital signs and Labs for Last 24 Hours: Temp Pulse Resp BP Pulse Ox 98.3 F 68 18 113/69 96 04/02/20 08:00 04/02/20 08:00 04/02/20 08:00 04/02/20 08:00 04/02/20 08:00 Laboratory Results - last 24 hr 04/02/20 05:48: WBC 9.6, RBC 3.34 L, Hgb 9.7 L, Hct 31.3 L, MCV 93.7, MCH 29.2, MCHC 31.1 L, RDW 13.1, Plt Count 582 H D, MPV 6.9 L, Neut % (Auto) 76.1, Lymph % (Auto) 15.2, [place] % (Auto) 6.3, Eos % (Auto) 2.2, Baso % (Auto) 0.3, Neut # (Auto) 7.3, Lymph # (Auto) 1.5, [place] # (Auto) 0.6, Eos # (Auto) 0.2, Baso # (Auto) 0.0 I & O for Last 24 hours: Intake & Output 03/30/20 03/31/20 04/01/20 04/02/20 23:59 23:59 23:59 23:59 Intake Total 1142 / 1262 2570 / 2570 2624 / 2744 1875 / 1875 Output Total 1800 / 2100 1300 / 1300 Balance 1142 / 1262 2570 / 2070 824 / 644 575 / 575 Weight 106 lb 3 oz 105 lb 7.986 oz 113 lb 110 lb 4 oz Microbiology Reports for the Last 24 Hours: Microbiology 03/30/20 13:15 Sputum - Expectorated Sputum Sputum Culture - Final Streptococcus pneumoniae - Constitutional no acute distress - *Routine HEENT Exam Head: Present: normocephalic. Absent: tenderness of temporal artery ENT: Present: mucous membranes moist. Absent: sinus tenderness - *Routine Neck Exam Present: full ROM, trachea midline. Absent: tracheal deviation - *Routine Respiratory Exam Present: rales. Absent: accessory muscle use Comments: Rales RLL - *Routine Cardiovascular Exam Present: RRR - *Routine Abdominal Exam Present: soft, normoactive bowel sounds. Absent: tenderness, firm - *Routine Extremities Exam Present: full ROM, pulses intact. Absent: clubbing, calf tenderness - *Routine Skin Exam Present: intact, warm. Absent: cyanosis, jaundice - *Routine Neurological Exam Present: alert, oriented X3. Absent: altered mental status Assessment and Plan (1) Community acquired pneumonia Status: Acute Qualifiers: Laterality: right Lung location: middle lobe of lung Qualified Code(s): J18.9 - Pneumonia, unspecified organism Category: Medical Code(s): J18.9 - Pneumonia, unspecified organism (2) Hypokalemia Status: Acute Category: Medical Code(s): E87.6 - Hypokalemia (3) SVT (supraventricular tachycardia) Status: Acute Category: Medical Code(s): I47.1 - Supraventricular tachycardia (4) History of breast cancer in adulthood Status: Chronic Category: Medical Code(s): Z85.3 - Personal history of malignant neoplasm of breast (5) BMI less than 19,adult Status: Chronic Category: Medical Code(s): Z68.1 - Body mass index [BMI] 19.9 or less, adult - Assessment and plan all Dx Assessment and Plan for all problems:: Initial round on patients this afternoon, all orders per Dr. Sharma: 1. CT of chest 2. Pulmonary consult 3. Consult behavioral health 4. Possible discharge tomorrow
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
--- NOTE | 2020-04-02 17:40 | PC.NURSE ---
Pt is acting bipolar / psychotic. She is now whispering whenever she talks. States that it's all concentrated now (while pointing to her left side). Reports feeling the energy around the room and it's making her better . When Bryn Edward (PA) called to check on her and suggested discharge, pt denied being ready, stating maybe in a few days, I keep making tea and it's making be better . Informed PA of pt's psychosis and concern of her being discharged to her home because of. Pt is fine for discharge physically, just not mentally. Verbalizes understanding and states that he will discuss matter with . No new orders received at this time.
--- NOTE | 2020-04-02 17:47 | PC.NURSE ---
Dr. Ingram at to assess and talk to pt.
--- NOTE | 2020-04-02 19:22 | PC.NURSE ---
report given to shy
--- NOTE | 2020-04-02 21:54 | PC.NURSE ---
Pt requested for fluids to be turned off so she can sleep.
[2020-04-03] VITALS (7 sets, daily range): BP systolic 106–133; BP diastolic 70–77; PULSE 95–120; RESP 18–20; TEMP 36.7–37.1; O2SAT 94–97; BMI 17.3
--- NOTE | 2020-04-03 03:59 | PC.NURSE ---
Pt has rested well this shift. Pt requested early in shift for IV fluids to be turned off so she could sleep after daughter and sister left. During assessment, pt was asked if staff could clean table and remove trays of food out of room. Pt stated that she was not done and was going to eat. She then stated that she was anorexic. Pt was then assessed. Pt was asked if she could sit up so this nurse could listen to her lungs. 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 Pt complied. Pt stated that she might take a shower, then stated it would depend on if she wakes up later in the night. Pt has slept well this shift. Lungs noted to have crackles to (R) base. Pt remains on RA. She points to her (R) back side and states it feels weird. BP stable. Pt has been sinus tach this shift. Pt stated early in shift that she thought her heart was racing and that she thought she needed her metoprolol and valium because of her visit with her family. No other concerns at this time. Call light within reach. Will continue to monitor.
--- NOTE | 2020-04-03 06:48 | PC.NURSE ---
Pt continues to request to have IV fluids off. She requests until she has had breakfast.
--- NOTE | 2020-04-03 09:34 | HMH.ACPN ---
Internal Medicine - PN: Subj *Date: 04/03/20 *Time: 09:34 Exam Vital signs and Labs for Last 24 Hours: Temp Pulse Resp BP Pulse Ox 98.1 F 106 H 20 106/71 L 97 04/03/20 07:47 04/03/20 07:47 04/03/20 07:47 04/03/20 07:47 04/03/20 07:47 I & O for Last 24 hours: Intake & Output 03/31/20 04/01/20 04/02/20 04/03/20 23:59 23:59 23:59 23:59 Intake Total 2570 / 2570 2624 / 2744 1875 / 1875 Output Total 1800 / 2100 1300 / 1300 Balance 2570 / 2070 824 / 644 575 / 575 Weight 47.854 kg 51.256 kg 50.009 kg 46.068 kg Microbiology Reports for the Last 24 Hours: Microbiology 03/30/20 13:15 Sputum - Expectorated Sputum Sputum Culture - Final Streptococcus pneumoniae Assessment and Plan (1) Community acquired pneumonia Status: Acute Qualifiers: Laterality: right Lung location: middle lobe of lung Qualified Code(s): J18.9 - Pneumonia, unspecified organism Category: Medical Code(s): J18.9 - Pneumonia, unspecified organism (2) Hypokalemia Status: Acute Category: Medical Code(s): E87.6 - Hypokalemia (3) SVT (supraventricular tachycardia) Status: Acute Category: Medical Code(s): I47.1 - Supraventricular tachycardia (4) History of breast cancer in adulthood Status: Chronic Category: Medical Code(s): Z85.3 - Personal history of malignant neoplasm of breast (5) BMI less than 19,adult Status: Chronic Category: Medical Code(s): Z68.1 - Body mass index [BMI] 19.9 or less, adult The patient's infection will respond to the chosen ABx?: Yes Is the patient receiving the right drug, dose, and route?: Yes Could a more targeted ABx be ordered?: No (SPUTUM CULTURE STREP PNEUMO SENSISTIVE TO ROCEPHIN.)
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
--- NOTE | 2020-04-03 13:38 | [facility].DCSUM ---
General - General Admission date:: 03/30/20 Discharge date: 04/03/20 HPI HPI: HPI narrative from the ER: Brought in by ambulance complaining of cough, generalized weakness, body aches. Symptoms began on Sunday. She has felt feverish but thinks she is only had a low-grade fever. No known exposures to any illnesses including COVID-19. Denies vomiting or diarrhea. Denies loss of taste or smell. Denies rhinorrhea or sore throat. Denies shortness of breath, but says her chest feels congested. Reported pulse oximetry on room air prior to transport was 98%. Patient reported taking a couple of Sudafed, noted to be tachycardic during transport. She has a history of breast cancer metastatic to lung. Her cancer specialist is Dr. Stovall with [facility] in [place]. She is on tamoxifen. She does not have a primary care provider. She states she is a non-smoker. No recent hospitalizations in the past 3 months. With work-up in the emergency room patient was found to have a right lower lobe pneumonia with effusion. White blood cell count was 17,300 with a hemoglobin of 11.7 and hematocrit of 36.1. Differential showed 85.1% neutrophils. She also was noted to have a low potassium at 3.1. Renal function was not elevated. COVID IgG and IgM were negative. Influenza A and B were also negative. She was given IV fluid bolus and started on Zithromax and Rocephin as well as p.o. potassium 40 mEq. She was then admitted for further evaluation and treatment Hospital Course Hospital Course: admitted for pneumonia chest film reviewed PROCEDURE: XR CHEST PORTABLE CLINICAL HISTORY: cough, fever COMPARISON: No exams were available for comparison FINDINGS: The cardiomediastinal silhouette and pulmonary vascularity are within normal limits. Consolidation is present in the right lower lobe consistent with pneumonia. There is a small right effusion. There is faint infiltrate suspected in the right suprahilar region. There is a 13 mm nodular opacity projecting over the left lower lobe possibly due to nipple shadow overlying the 6th rib anteriorly. No acute bony findings. No acute bony abnormalities. IMPRESSION: Right lower lobe pneumonia with effusion. Nipple shadow versus pulmonary nodule left lower lung zone. Placed on IV rocephin. BC- Sputum culture grew out strep pneumo Sensitive to several oral agents Further studied by CT chest IMPRESSION: 1. Dense consolidation in the right lower lobe consistent with pneumonia. 2. 2.8 x 2.3 cm irregular opacity in the right infrahilar region. Neoplasm is considered. This could represent an area of dense consolidation as well. Follow-up is suggested. There is also peripheral opacification in the right lower lobe laterally which may be due to an area of scarring. Loculated right pleural effusion. 3. 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 Patient was started on antibiotics and her breathing significantly improved, today patient did not appear to be in respiratory distress and on room air. Chest x-ray reported as mild worsening of her right-sided pleural effusion along with a concerning left lower lobe opacity that might be a nipple shadow. 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
--- NOTE | 2020-04-03 15:29 | PC.NURSE ---
MD CARLISLE ROUNDING AT 1514 SAID TO D/C PATIENTS F/C IF HAVE NOT ALREADY AND TO DC IVF.
--- NOTE | 2020-04-03 16:56 | PC.NURSE ---
discharge instructions given to patient. patient aware she is to make follow up apt with md in 1 week d/t it being a weekend and office not open. iv to rfa removed, dsd applied, telemetry removed. patient assisted to front door by staff via wheelchair where patients friend picked her up.
== END 2020-04-03 17:00 | disposition home or self-care (01) | DRG 194 ==
LOC: ER 12:04 → 2ND 03-31 11:15
PROVIDERS: Admitting Provider Family Medicine; Emergency Provider Emergency Medicine; PCP Emergency Medicine; Visit Provider Emergency Medicine
DX: J18.9 Pneumonia, unspecified organism (principal); I47.1 Supraventricular tachycardia; J90 Pleural effusion, not elsewhere classified; C78.00 Secondary malignant neoplasm of unspecified lung; E87.6 Hypokalemia; Z79.52 Long term (current) use of systemic steroids; Z79.899 Other long term (current) drug therapy; E03.9 Hypothyroidism, unspecified; F39 Unspecified mood [affective] disorder; C50.919 Malignant neoplasm of unspecified site of unspecified female breast; Z79.810 Long term (current) use of selective estrogen receptor modulators (SERMs)
CPT/HCPCS: 36415; 71045; 71250; 80048; 80053; 83605; 85007; 85025; 86328; 87040; 87070; 87077; 87186; 87205; 87275; 87276; 93005; 94640; 94761; 96365; 96366; 96367; 96375; 99284; J0456; U0003